=== PATIENT | male | born 2005 | race Two or more races ===

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

== ENCOUNTER 2025-01-29 00:25 | Emergency (ER) | payer OTHER ==
[~2025-01-29] VITALS: Ht 175.3 cm; Wt 81.6 kg
[2025-01-29] MEDS ORDERED: FAMOTIDINE (20 MG) 20 MG TABLET ONE (01:17)
[2025-01-29] MEDS ORDERED: ONDANSETRON 4 MG TAB.RAPDIS ONE (01:28)
[2025-01-29] MEDS: FAMOTIDINE (20 MG) 20 MG TABLET PO ONE (01:32)
[2025-01-29] MEDS: ONDANSETRON 4 MG TAB.RAPDIS SL ONE (01:32)
[2025-01-29] MEDS ORDERED: HYDROCORTISONE 1% CREAM 28.35 GM TUBE TP ONE (03:40)
[2025-01-29] MEDS: HYDROCORTISONE 1% CREAM 30 GM TUBE TP ONE (03:49)
[2025-01-29] MEDS ORDERED: DIPH25CA83 PO (03:54)
[2025-01-29] MEDS ORDERED: PRED50TA PO (03:54)
[2025-01-29 04:27] VITALS: BP 135/70; TEMP 98.5; O2SAT 98
== END 2025-01-29 04:27 | disposition home or self-care (01) ==
LOC: ER 01:22
DX: R21 Rash and other nonspecific skin eruption (principal); R06.02 Shortness of breath; R11.0 Nausea; Z79.52 Long term (current) use of systemic steroids
CPT/HCPCS: 99284; J8540; Q0163 ×2; Q0162